=== PATIENT | female | born 1995 | race Caucasian/White ===

== ENCOUNTER 2017-01-13 12:43 | Inpatient (IN) | payer OTHER ==
[~2017-01-13] VITALS: Ht 167.6 cm; Wt 69.2 kg
[2017-01-13 13:32] LABS: BASOPHIL 0.4 % (0-2); EOSINOPHIL 17.7 % (0-5); HCT 46.9 % (37.0-47.0); HGB 16.3 g/dl (12.5-16.0); LYMPHOCYTE 12.4 % (15-48); MCHC 34.8 g/dL (32.0-36.0); MCV 86.4 fL (78.0-100.0); MONOCYTE 4.1 % (0-12); MPV 10.7 fL (6.0-9.5); NEUTROPHIL 65.4 % (41-80); PLT 281 K/uL (150-400); RBC 5.43 M/uL (4.20-5.40); RDW 12.5 % (11.5-14.0)
[2017-01-13 13:47] LABS: ALBUMIN 4.9 g/dL (3.5-5.0); BILIRUBIN - TOTAL 0.8 mg/dL (0.1-1.0); CREATININE 0.8 mg/dL (0.5-1.0); GLOBULIN (CALCULATION) 3.4 g/dL (2.2-4.2); TOTAL PROTEIN 8.3 g/dL (6.4-8.3)
[2017-01-13 16:44] LABS: LACTIC ACID 1.1 mmol/L (0.5-2.2)
[2017-01-14 04:06] LABS: HCT 39.8 % (37.0-47.0); HGB 13.6 g/dl (12.5-16.0); MCH 29.7 pg (25.0-31.0); MCHC 34.2 g/dL (32.0-36.0); MCV 86.9 fL (78.0-100.0); MPV 10.6 fL (6.0-9.5); RBC 4.58 M/uL (4.20-5.40); RDW 12.6 % (11.5-14.0); WBC 10.4 K/uL (4.0-10.5)
[2017-01-14 04:28] LABS: CREATININE 0.7 mg/dL (0.5-1.0); POTASSIUM 4.1 mmol/L (3.5-5.1)
[2017-01-15 04:41] LABS: HCT 37.1 % (37.0-47.0); HGB 12.8 g/dl (12.5-16.0); MCH 30.3 pg (25.0-31.0); MCHC 34.5 g/dL (32.0-36.0); MCV 87.9 fL (78.0-100.0); MPV 10.8 fL (6.0-9.5); RBC 4.22 M/uL (4.20-5.40)
[2017-01-15 04:52] LABS: CREATININE 0.7 mg/dL (0.5-1.0); POTASSIUM 3.6 mmol/L (3.5-5.1)
[2017-01-16 04:05] LABS: HCT 37.8 % (37.0-47.0); HGB 12.9 g/dl (12.5-16.0); MCH 30.4 pg (25.0-31.0); MCHC 34.1 g/dL (32.0-36.0); MCV 88.9 fL (78.0-100.0); MPV 10.8 fL (6.0-9.5); RBC 4.25 M/uL (4.20-5.40); RDW 13.1 % (11.5-14.0); WBC 16.9 K/uL (4.0-10.5)
[2017-01-16 04:23] LABS: CREATININE 0.7 mg/dL (0.5-1.0); POTASSIUM 3.6 mmol/L (3.5-5.1)
[2017-01-16] MEDS ORDERED: VENTOLIN HFA IN18 GM INH (09:59)
[2017-01-16] MEDS ORDERED: LOPRESSOR25 MG PO (10:00)
[2017-01-16] MEDS ORDERED: PREDNISONE 10MG10 MG PO (10:02)
[2017-01-16] MEDS ORDERED: CEFDINIR300 MG PO (10:02)
[2017-01-16] MEDS ORDERED: ZITHROMAX500 MG PO (10:04)
--- NOTE | 2017-01-16 10:38 | NUR ---
IV SITE D/C'D;PRESSURE DRESSING APPLIED;PT TOLERATED WELL. D/C & RX INSTRUCTIONS GIVEN;PT VERBALIZED UNDERSTANDING;D/C FROM FACILITY
== END 2017-01-16 11:00 | disposition home or self-care (01) | DRG 871 ==
LOC: FER 12:43 → FTCU 15:56
PROVIDERS: Emergency Medicine; Internal Medicine; ADMIT Internal Medicine
DX: A41.9 Sepsis, unspecified organism (principal); J18.9 Pneumonia, unspecified organism; J96.01 Acute respiratory failure with hypoxia; E87.2 Acidosis; J45.901 Unspecified asthma with (acute) exacerbation
CPT/HCPCS: 36415; 71010; 71020; 71275; 80048; 80053; 80202; 83605; 84145; 84443; 85025; 85379; 86738; 87040; 87070; 87205; 87449; 87804; 87899; 93005; 94640; J0456; J1956; J2270; J2405; J2543; J2930; J3370; Q9967